=== PATIENT | male | born 2000 | race African-American/Black ===

== ENCOUNTER 2025-07-25 08:16 | Outpatient (CLI) | payer OTHER | END 2025-07-25 08:17 | disposition home or self-care (01) | LOC: CSHSLEEP 08:16 | PROVIDERS: ATTEND Family Medicine | DX: G47.33 Obstructive sleep apnea (adult) (pediatric) (principal); E66.9 Obesity, unspecified; Z68.44 Body mass index [BMI] 60.0-69.9, adult | CPT/HCPCS: 95800 ==